=== PATIENT | male | born 1935 | race African-American/Black ===

== ENCOUNTER 2021-03-15 17:29 | Inpatient (IN) | payer OTHER ==
[2021-03-15] MEDS ORDERED: Albuterol Sulfate 2.5 mg/3 ml Neb ONE ×2 (17:38)
[2021-03-15 18:44] LABS: Bilirubin Neg (Negative); Blood, Urine 250 (Negative); Clarity Clear (Clear); Glucose, Urine (Dipstick) Normal (Negative); Ketone, Urine Negative (Negative); Leukocyte 25 (Negative); Nitrite Negative (Negative); Protein, Urine (Dipstick) 30 mg/dl (Neg-Trace); Specific Gravity, Urine 1.015 (1.002-1.036); Urobilinogen Normal mg/dL (Less than 2)
[2021-03-15 19:16] LABS: Bacteria/HPF 3+ HPF (None Seen); Mucous/LPF 2+ LPF (<2+); Squamous Epithelial 0-3 HPF (0-3); WBC/HPF 0-3 HPF (0-3)
[2021-03-15 19:49] LABS: ALT (SGPT) 733 U/L (8-55); AST (SGOT) 815 U/L (5-34); Albumin 2.8 g/dL (3.4-4.8); Alkaline Phosphatase 91 U/L (40-110); Anion Gap 40 mmol/L (10-20); Bilirubin, Total 1.7 mg/dL (0.2-1.2); CK (CPK) 1794 U/L (30-200); Calc. Creatinine Clearance 0 mL/min (70-130); Chloride 104 mmol/L (98-107); Globulin 3.4 g/dL (2.4-3.5); Glucose 246 mg/dL (83-110); Magnesium 3.7 mg/dL (1.6-2.6); Protein, Total 6.2 g/dL (5.8-8.1); Sodium 145 mmol/L (136-145)
[2021-03-15 19:54] LABS: Carbon Dioxide 9 mmol/L (23-31); Potassium 8.3 mmol/L (3.5-5.1)
[2021-03-15 19:58] LABS: BUN (Urea Nitrogen) 219 mg/dL (8.4-25.7)
[2021-03-15] MEDS ORDERED: Midazolam HCl 2 mg/2 ml Vial SLOW IVP PRN (20:18)
[2021-03-15] MEDS: fentaNYL Citrate-0.9 % NaCl/PF 100 ML IVPB SCH (20:26)
[2021-03-15 20:43] LABS: SARS-CoV-2 NAA Rapid Test Not Detected (NotDetected)
[2021-03-15] MEDS ORDERED: Cefepime 2 GM in Sodium Chloride 0.9% 100 ML IVPB SCH (21:00)
[2021-03-15] MEDS ORDERED: Vancomycin 1.5 GRAM/300 ML BAG 1.5 GM in Premix Bag 1 BAG IVPB SCH (21:15)
[2021-03-15 21:33] LABS: Actual Bicarbonate (HCO3a) 13.8 mEq/L (22-28); Base Excess (BEa) -9.2 mEq/L (-2.0 to +3.0); CO2 Tension 23.2 mmHg (35.0-45.0); Carboxyhemoglobin (COHb) 0.2 gm% (0.0-3.0); Critical Notified Whom: RN; Hemoglobin (Hb) 13.2 g/dL (14.0-18.0); O2 Tension (PaO2), arterial 329.8 mmHg (> 60.0); Puncture Site RBA; pH, Arterial 7.39 (7.35-7.45)
[2021-03-15 22:03] LABS: Hemoglobin 13.4 g/dL (13.5-17.5); Mean Corpuscular HGB CONC 36.3 g/dL (32.0-36.0); Mean Corpuscular Hemoglobin 29.5 pg (27.0-33.0); Mean Corpuscular Volume 81.3 fl (81.2-95.1); Platelet Count 162 10x3/uL (150-450); RBC Distribution Width 13.4 % (11.5-14.5); Red Blood Cell (RBC) Count 4.54 10x6/uL (4.32-5.72); White Blood Cell (WBC) Count 21.9 10x3/uL (3.5-10.5)
[2021-03-15 22:10] LABS: INR-International Normal Ratio 1.8; PTT 37.1 sec (22.0-33.0); Prothrombin Time 19.8 sec (9.5-12.1)
[2021-03-15 22:29] LABS: MDiff Complete? YES
[2021-03-15 22:32] LABS: Band 5 % (5-11); Lymphocytes 2 % (21-51); Monocytes 7 % (0-10); Neutrophil 86 % (42-75)
[2021-03-15 22:34] LABS: Platelet Morphology Comment Appears Adequate; RBC Morphology Normal
[2021-03-15 22:37] LABS: CKMB 21.5 ng/mL (0-6.6)
[2021-03-15] MEDS: Pantoprazole 40 MG VIAL IVP SCH (22:56)
[2021-03-15] MEDS ORDERED: Dextrose 50% Abboject 50 ML SYRINGE SLOW IVP SCH (23:00)
[2021-03-15] MEDS ORDERED: Insulin Regular 300 UNITS/3 ML VIAL IVP SCH (23:00)
[2021-03-15] MEDS ORDERED: Sodium Bicarbonate 150 MEQ in Dextrose 5% in Water 1,000 ML IV SCH (23:15)
[2021-03-15] MEDS: EPINEPHrine 1 MG, Admixture Fee 1 EACH in Dextrose 5% in Water 250 ML IVPB SCH (23:49)
[2021-03-16 01:00] LABS: Lactic Acid 12.6 mmol/L (0.5-2.2)
[2021-03-16] MEDS: Calcium Gluconate 4.6 MEQ in Sodium Chloride 0.9% 100 ML IVPB SCH ×2 (01:45→03:43)
[2021-03-16] MEDS ORDERED: Insulin Regular 300 UNITS/3 ML VIAL IVP SCH ×2 (01:45→03:45)
[2021-03-16] MEDS: EPINEPHrine 1 MG, Admixture Fee 1 EACH in Dextrose 5% in Water 250 ML IVPB SCH ×2 (03:40→07:42)
[2021-03-16 04:17] LABS: #Monocytes 0.4 10x3/uL (0.0-1.1); #Neutrophils 11.8 10x3/uL (1.5-8.4); %Basophils 0.2 % (0.0-2.0); %Lymphocytes 4.3 % (18.0-47.0); %Neutrophils 91.5 % (40.0-75.0); Hemoglobin 13.4 g/dL (13.5-17.5); Mean Corpuscular HGB CONC 37.2 g/dL (32.0-36.0); Mean Corpuscular Hemoglobin 29.7 pg (27.0-33.0); Mean Corpuscular Volume 79.8 fl (81.2-95.1); Mean Platelet Volume 10.8 fl (7.4-10.4); Platelet Count 122 10x3/uL (150-450); RBC Distribution Width 13.2 % (11.5-14.5); Red Blood Cell (RBC) Count 4.51 10x6/uL (4.32-5.72); White Blood Cell (WBC) Count 12.9 10x3/uL (3.5-10.5)
[2021-03-16 04:28] LABS: Anion Gap 29 mmol/L (10-20); Calc. Creatinine Clearance 6 mL/min (70-130); Calcium 9.3 mg/dL (7.8-10.44); Carbon Dioxide 20 mmol/L (23-31); Chloride 104 mmol/L (98-107); Glucose 465 mg/dL (83-110); Potassium 5.9 mmol/L (3.5-5.1); Sodium 147 mmol/L (136-145)
[2021-03-16 04:38] LABS: BUN (Urea Nitrogen) 194 mg/dL (8.4-25.7)
[2021-03-16] MEDS ORDERED: INSULIN REGULAR IN 0.9 % NACL 100 UNIT in Premix Bag 1 BAG IVPB SCH (05:15)
[2021-03-16] MEDS ORDERED: Lidocaine 1% (PF) 30 ML VIAL SC SCH (05:45)
[2021-03-16] MEDS ORDERED: HumaLOG 300 UNITS/3 ML VIAL SC PRN (07:52)
[2021-03-16] MEDS ORDERED: Dextrose 5% in Water 1,000 ML IV PRN (07:52)
[2021-03-16] MEDS ORDERED: Dextrose 50% Abboject 50 ML SYRINGE SLOW IVP PRN (07:52)
[2021-03-16] MEDS: NPH, Human Insulin Isophane 300 UNIT/3 ML VIAL SC SCH ×4 (08:19→20:37)
[2021-03-16] MEDS: Norepinephrine 8 MG/0.9% NS 250 ML IVPB SCH ×2 (08:32→21:59)
[2021-03-16 08:41] LABS: Actual Bicarbonate (HCO3a) 25.3 mEq/L (22-28); Base Excess (BEa) 2.6 mEq/L (-2.0 to +3.0); CO2 Tension 32.8 mmHg (35.0-45.0); Calcium, Ionized (arterial) 1.17 mmol/L (1.12-1.30); Carboxyhemoglobin (COHb) 0.5 gm% (0.0-3.0); Hemoglobin (Hb) 12.5 g/dL (14.0-18.0); O2 Tension (PaO2), arterial 79.7 mmHg (> 60.0); Puncture Site RRA; pH, Arterial 7.51 (7.35-7.45)
[2021-03-16] MEDS ORDERED: Acetaminophen 650 MG/20.3 ML UDCUP PER TUBE PRN (11:35)
[2021-03-16] MEDS: Acetaminophen 650 MG Suppository PR PRN (11:50)
[2021-03-16 15:00] LABS: Anion Gap 21 mmol/L (10-20); Calc. Creatinine Clearance 8 mL/min (70-130); Calcium 9.2 mg/dL (7.8-10.44); Carbon Dioxide 29 mmol/L (23-31); Chloride 108 mmol/L (98-107); Glucose 143 mg/dL (83-110); Potassium 5.7 mmol/L (3.5-5.1); Sodium 152 mmol/L (136-145)
[2021-03-16 15:09] LABS: BUN (Urea Nitrogen) 170 mg/dL (8.4-25.7)
[2021-03-16] MEDS ORDERED: Sodium Chloride 0.9% 1,000 ML IV SCH (15:15)
[2021-03-16] MEDS ORDERED: Cefepime 0.5 GM in Sodium Chloride 0.9% 100 ML IVPB SCH (20:00)
[2021-03-16] MEDS: Pantoprazole 40 MG VIAL IVP SCH (20:38)
[2021-03-17] MEDS: Acetaminophen 650 MG Suppository PR PRN (00:29)
[2021-03-17] MEDS: fentaNYL Citrate-0.9 % NaCl/PF 100 ML IVPB SCH (00:42)
[2021-03-17 01:02] LABS: Bilirubin Neg (Negative); Blood, Urine 250 (Negative); Clarity Cloudy (Clear); Glucose, Urine (Dipstick) Normal (Negative); Ketone, Urine Negative (Negative); Leukocyte 100 (Negative); Nitrite Negative (Negative); Protein, Urine (Dipstick) 30 mg/dl (Neg-Trace); Urobilinogen Normal mg/dL (Less than 2)
[2021-03-17 01:23] LABS: Bacteria/HPF Rare-Few HPF (None Seen); RBC/HPF 21-50 HPF (0-3); Squamous Epithelial None Seen HPF (0-3); Urine Culture Reflex No No
[2021-03-17] MEDS: NPH, Human Insulin Isophane 300 UNIT/3 ML VIAL SC SCH ×2 (03:16→12:07)
[2021-03-17 08:53] LABS: #Monocytes 1.2 10x3/uL (0.0-1.1); #Neutrophils 15.5 10x3/uL (1.5-8.4); %Basophils 0.1 % (0.0-2.0); %Lymphocytes 5.7 % (18.0-47.0); %Monocytes 6.6 % (0.0-10.0); %Neutrophils 86.3 % (40.0-75.0); Hemoglobin 11.8 g/dL (13.5-17.5); Mean Corpuscular HGB CONC 36.1 g/dL (32.0-36.0); Mean Corpuscular Hemoglobin 29.4 pg (27.0-33.0); Mean Corpuscular Volume 81.3 fl (81.2-95.1); Mean Platelet Volume 11.2 fl (7.4-10.4); Platelet Count 184 10x3/uL (150-450); RBC Distribution Width 13.5 % (11.5-14.5); Red Blood Cell (RBC) Count 4.02 10x6/uL (4.32-5.72)
[2021-03-17] MEDS ORDERED: Heparin 5,000 UNITS/ML VIAL SC SCH (09:00)
[2021-03-17] MEDS ORDERED: FLU VACC QS2021-22(65YR UP)/PF 240 MCG/0.7 ML SYRINGE IM ONE (09:00)
[2021-03-17 09:04] LABS: INR-International Normal Ratio 1.3; Prothrombin Time 13.9 sec (9.5-12.1)
[2021-03-17 09:19] LABS: ALT (SGPT) 344 U/L (8-55); AST (SGOT) 99 U/L (5-34); Albumin 2.6 g/dL (3.4-4.8); Alkaline Phosphatase 64 U/L (40-110); Anion Gap 19 mmol/L (10-20); Bilirubin, Total 0.9 mg/dL (0.2-1.2); Calc. Creatinine Clearance 12 mL/min (70-130); Calcium 8.6 mg/dL (7.8-10.44); Carbon Dioxide 29 mmol/L (23-31); Chloride 114 mmol/L (98-107); Globulin 3.3 g/dL (2.4-3.5); Glucose 159 mg/dL (83-110); Magnesium 2.7 mg/dL (1.6-2.6); Phosphorus 6.4 mg/dL (2.3-4.7); Potassium 4.4 mmol/L (3.5-5.1); Protein, Total 5.9 g/dL (5.8-8.1); Sodium 158 mmol/L (136-145)
[2021-03-17 09:29] LABS: BUN (Urea Nitrogen) 152 mg/dL (8.4-25.7)
[2021-03-17] MEDS ORDERED: Scopolamine 1.5 mg/72 hour Patch TD SCH (11:30)
[2021-03-17] MEDS ORDERED: Atropine Sulfate 1% Ophth Soln 5 ml Bottle PO SCH ×2 (11:30→14:45)
[2021-03-17] MEDS: Morphine 4 MG/ML VIAL SLOW IVP PRN ×2 (13:39→21:19)
[2021-03-17] MEDS: Lorazepam 2 MG/ML VIAL SLOW IVP PRN (13:40)
[2021-03-18] MEDS: Lorazepam 2 MG/ML VIAL SLOW IVP PRN ×3 (01:04→17:56)
[2021-03-18] MEDS: Morphine 4 MG/ML VIAL SLOW IVP PRN ×4 (10:42→17:54)
[2021-03-19 09:15] VITALS: BMI 22.1
[2021-03-19] MEDS: Morphine 4 MG/ML VIAL SLOW IVP PRN ×2 (11:30→14:52)
[2021-03-19] MEDS: Lorazepam 2 MG/ML VIAL SLOW IVP PRN (15:18)
[2021-03-19 16:55] VITALS: BP 87/51; TEMP 98.3
== END 2021-03-19 16:23 | disposition expired ==
LOC: CSHERS 17:29 → CSHICU 17:30 → CSHTELE 03-19 08:52
PROVIDERS: ADMIT Family Medicine; ATTEND Family Medicine
PROC: 5A1945Z Respiratory Ventilation, 24-96 Consecutive Hours (ICD-10-PCS; principal; 2021-03-15)
PROC: 3E033XZ Introduction of Vasopressor into Peripheral Vein, Percutaneous Approach (ICD-10-PCS; 2021-03-15)
PROC: 0W9930Z Drainage of Right Pleural Cavity with Drainage Device, Percutaneous Approach (ICD-10-PCS; 2021-03-16)
PROC: 02HV33Z Insertion of Infusion Device into Superior Vena Cava, Percutaneous Approach (ICD-10-PCS; 2021-03-16)
PROC: B548ZZA Ultrasonography of Superior Vena Cava, Guidance (ICD-10-PCS; 2021-03-16)
PROC: 05JY3ZZ Inspection of Upper Vein, Percutaneous Approach (ICD-10-PCS; 2021-03-16)
DX: I46.9 Cardiac arrest, cause unspecified (principal); J96.01 Acute respiratory failure with hypoxia; I21.4 Non-ST elevation (NSTEMI) myocardial infarction; J95.811 Postprocedural pneumothorax; N17.0 Acute kidney failure with tubular necrosis; J69.0 Pneumonitis due to inhalation of food and vomit; R40.20 Unspecified coma; J96.02 Acute respiratory failure with hypercapnia; G93.1 Anoxic brain damage, not elsewhere classified; E87.0 Hyperosmolality and hypernatremia; E87.2 Acidosis; Z20.822 Contact with and (suspected) exposure to COVID-19; R33.9 Retention of urine, unspecified; E86.0 Dehydration; Z66 Do not resuscitate; R79.89 Other specified abnormal findings of blood chemistry; R57.0 Cardiogenic shock; D69.59 Other secondary thrombocytopenia; E87.5 Hyperkalemia; L89.229 Pressure ulcer of left hip, unspecified stage; D69.6 Thrombocytopenia, unspecified; E11.65 Type 2 diabetes mellitus with hyperglycemia; D72.829 Elevated white blood cell count, unspecified; T79.6XXA Traumatic ischemia of muscle, initial encounter; E11.22 Type 2 diabetes mellitus with diabetic chronic kidney disease; Z53.8 Procedure and treatment not carried out for other reasons; N18.9 Chronic kidney disease, unspecified; F03.90 Unspecified dementia, unspecified severity, without behavioral disturbance, psychotic disturbance, mood disturbance, and anxiety; Z51.5 Encounter for palliative care; Z79.891 Long term (current) use of opiate analgesic; Z79.899 Other long term (current) drug therapy; Z79.4 Long term (current) use of insulin
CPT/HCPCS: 36415; 36416; 36556; 36600; 51702; 70450; 71045; 80048; 80053; 81001; 81003; 81015; 82553; 82805; 83605; 83735; 84100; 85025; 85610; 85730; 87040; 87081; 87086; 93005; 93010; 94002; 94003; 94760; 96365; 96366; 96368; C9113; J0171; J0610; J0692; J1644; J1815; J2001; J2060; J2270; J3370; J3490; J7050; J7070; J7611; U0002